=== PATIENT | male | born 1970 | race Caucasian/White ===

== ENCOUNTER 2021-03-13 00:54 | Inpatient (IN) | payer OTHER ==
[~2021-03-13] VITALS: Ht 172.7 cm; Wt 83.9 kg
--- NOTE | ~2021-03-13 | O ---
[facility] [place] [address] OPERATIVE REPORT Name: COLE GANN Room #: 444-P ADM IN M.R.#: [id number] Admission: 03/13/21 Attend Phys: Ranjana Maddox MD Discharge: Date of : 74 Report #: [id number] THIS REPORT FOR: cc: NO FAMILY PHYSICIAN or PCP NO FAMILY PHYSICIAN or PCP Vickey Ovalle MD ~ DATE OF SERVICE: 03/13/2021 SURGEON: Vickey Ovalle MD PREOPERATIVE DIAGNOSES: 1. Left parapharyngeal abscess. 2. Left tonsil mass. POSTOPERATIVE DIAGNOSES: 1. Left parapharyngeal abscess. 2. Left tonsil mass. PROCEDURES: 1. Bilateral Quinsy tonsillectomy. 2. Incision and drainage, left parapharyngeal abscess. INDICATIONS: The patient is a 51-year-old male presenting to the Emergency Department last night on transfer from [facility] after presenting with a 48-hour history of escalating sore throat. He was found to have a 3.5 cm abscess in the left peritonsillar and parapharyngeal space and they had recommended transfer. The patient had just eaten prior to his ER visit and so this was deferred to this morning for drainage. I have told him because he is 51 years old and a tobacco user that this is concerning for presentation of tonsil cancer and will need Quinsy tonsillectomy for biopsy as well as incision and drainage. DESCRIPTION OF PROCEDURE: The patient was brought to the operating room and placed supine on the operating table. After adequate general anesthesia was achieved via endotracheal intubation, he was turned 90 degrees. Shoulder roll was placed and neck was extended. He was prepped and draped for tonsillectomy. McIvor mouth gag was introduced, tongue was retracted and the patient suspended from the Bettencourt stand. Soft palate was palpated. There was no submucous cleft. It was retracted with a soft catheter. There was no nasopharyngeal mass. Right tonsil was grasped, moved to midline and incised with Bovie cautery. Left tonsil was then grasped. There was a bulging abscess in the superior pole. Incision was made into the anterior tonsillar pillar with an efflux of about 2-3 mL of esteban purulence. This was cultured for aerobe and fungus as a left parapharyngeal abscess. This parapharyngeal was extended more towards the retropharyngeal area than it did laterally towards the neck. There seemed to be a mass effect of the tonsil superiorly whether this was inflammatory or [address] [address] OPERATIVE REPORT Name: COLE GANN Room #: 444-P [facility] IN M.R.#: [id number] Admission: 03/13/21 Attend Phys: Ranjana Maddox MD Discharge: Date of : 74 Report #: [id number] neoplastic was uncertain. Incision was carried down to the muscle of the superior constrictor and then this entire tonsil was removed down to normal-appearing muscle on the left. Hemostasis was assured with suction cautery on both sides. Nose, nasopharynx, oral cavity were then irrigated. Once hemostasis was assured, he was returned to anesthesia, awake without difficulty, returned to recovery in good condition. Sponge and needle counts were correct. There were no complications. Blood loss was about 30 mL. POSTOPERATIVE PLAN: He will be watched until awake and stable. Presuming he does well, he may be discharged to home with plans to follow up with me in 2 weeks. Written and verbal discharge instructions and emergency precautions have been given to his . DISCHARGE MEDICATIONS: Include clindamycin 300 mg t.i.d. for 10 days, Percocet 7.5/325 one to two every 4-6 hours p.r.n., ondansetron ODT tablet 4 mg 1 p.o. every 4-6 hours p.r.n. He is instructed on light activity and a soft diet. The patient understands that if biopsies do show malignancy, further therapy will be necessary. By: [id number] Vickey Ovalle MD /nt
--- NOTE | ~2021-03-13 | HC ---
[facility] [place] [address] CONSULTATION Name: COLE GANN Room #: 150-3 ADM IN M.R.#: [id number] Admission: 03/13/21 Attend Phys: Ranjana Maddox MD Discharge: Date of : 74 Report #: [id number] THIS REPORT FOR: cc: NO FAMILY PHYSICIAN or PCP NO FAMILY PHYSICIAN or PCP Vickey Ovalle MD ~ SURGEON: Dr. Vickey Ovalle. REASON FOR CONSULTATION: Left peritonsillar abscess. HISTORY OF PRESENT ILLNESS: The patient is a 51-year-old male admitted via the Emergency Department at [facility] after transfer from [facility] for a diagnosis of peritonsillar abscess. The patient was transferred via private vehicle. He complained of sore throat, having its onset last Saturday morning, 48 hours ago, seemed to get better through the afternoon, but then worsened again at the night. This was associated with dysphagia and some dysarthria. [facility] had performed a CT and he was found to have 3.5 x 3.1 cm peritonsillar abscess as well as leukocytosis with a white count of 30,000. The patient was treated with 10 mg of IV Decadron and 600 mg of clindamycin IV as well as fluids and then transferred. The patient is at risk with an everyday smoker and does smoke marijuana daily. He denies alcohol use. The patient had just eaten prior to transfer last night. This could not be drained in the middle of the night. The patient was made n.p.o. and provided with IV hydration, admitted to the hospital and scheduled for an incision and drainage this morning. I did discuss with he and his options of incision and drainage alone versus incision and drainage with Quinsy tonsillectomy. Of concern, the patient is an everyday smoker and unusual without a history of chronic tonsillitis for this to develop, concern is always for an occult tonsil cancer, presenting as a peritonsillar abscess. I have recommended a Quinsy tonsillectomy for biopsy. PAST MEDICAL HISTORY: Negative for any significant chronic medical problems. He has no significant surgical history. MEDICATIONS: Prior to admission were none. ALLERGIES: None. SOCIAL HISTORY: He is a current everyday smoker of at least 1/2-1 pack a day, [place] [address] CONSULTATION Name: COLE GANN Room #: 150-3 [facility] IN ..#: [id number] Admission: 03/13/21 Attend Phys: Ranjana Maddox MD Discharge: Date of : 74 Report #: [id number] although he states he is trying to quit. He does smoke marijuana. He denies alcohol use. He is here today with his who is present to give history. REVIEW OF SYSTEMS: The patient is complaining of sore throat and dysphagia as well as general malaise. Otherwise, a 12-point review of systems is negative. PHYSICAL EXAMINATION: GENERAL: Shows a well-developed 51-year-old male seen in the preoperative area. VITAL SIGNS: Show a temperature of 97.1, pulse of 86, respiration of 19, 137/84, 98% on room air. HEENT: He is normocephalic. Pupils equal, round, reactive to light. Otologic exam is clear. Nasal exam; deviated septum to the right. Oral cavity shows an obvious abscess on the left with bulging of the anterior tonsillar pillar. The airway is adequate. Tongue is normal. NECK: Shows level 2 bilateral jugulodigastric adenopathy, slightly worse on the left. Trachea is midline. No other neck masses. NEUROLOGIC: Cranial nerves II-XII are intact. Motor, sensory and cerebellar exams are normal. LABORATORY WORK: Done on admission shows a white count of 22,300. This is down from 30,000 at [place]. Hemoglobin of 14.1, normal platelets. This is a left shift. Coronavirus was negative. Lactic acid 4.9. Metabolic evaluation shows a low salt, sodium of 135, glucose of 214 with IV fluids. The patient's SGOT was 11. I have reviewed notes from [facility] and read through all of these. ASSESSMENT: 1. Left peritonsillar abscess 3.5 x 3.1 cm with subsequent asymmetry of the left lateral oropharynx in a patient without a significant history of chronic tonsillitis. 2. Tobacco abuse, everyday smoker of tobacco 1/2 pack to 1 pack a day with marijuana. At a 51-year-old presentation with peritonsillar abscess. There is always a concern for tonsil malignancy. 3. Stable airway. PLAN: I have recommended proceeding with an incision and drainage of left peritonsillar abscess with Quinsy tonsillectomy for diagnosis and to rule out malignancy. I have discussed the planned procedure, indications, alternatives, benefits, and potential risks with the patient and his . I have made it clear to them that the peak time for bleeding is not immediate, but rather 5-10 days from today as this heals and as they are from an [facility] ____ with [facility] [address] [place] [address] CONSULTATION Name: COLE GANN Room #: 150-3 ADM IN M.R.#: [id number] Admission: 03/13/21 Attend Phys: Ranjana Maddox MD Discharge: Date of : 74 Report #: [id number] otolaryngic evaluation, this becomes more risky. They understand and desire to proceed. They agree with proceeding with Quinsy tonsillectomy per my concerns. By: [id number] Vickey Ovalle MD /nt
[2021-03-13 01:07] VITALS: BP 133/80
[2021-03-13 01:32] LABS: HEMOGLOBIN 14.1 gm/dL (14.0-18.0); MCH 29.8 pg (26.0-34.0); MCHC 33.6 g/dL (28.0-37.0); MCV 88.8 fL (80.0-100.0); PLATELET COUNT 281 thou/uL (150-400); RBC 4.73 mil/uL (4.50-6.00); RDW 14.2 % (10.5-14.5); WBC 22.3 thou/uL (4.0-11.0)
[2021-03-13 02:06] LABS: CALCIUM 8.7 mg/dL (8.5-10.1); CREATININE 1.4 mg/dL (0.7-1.3); POTASSIUM 4.1 mmol/L (3.5-5.1)
[2021-03-13 02:23] LABS: ALBUMIN 3.1 g/dL (3.4-5.0); TOTAL BILIRUBIN 0.4 mg/dL (0.2-1.0); TOTAL PROTEIN 7.1 g/dL (6.4-8.2)
[2021-03-13 02:52] LABS: ABSOLUTE NEUTROPHILS 21.4 thou/uL (1.4-8.2); METAMYELOCYTES 1 %
[2021-03-13 10:16] VITALS: BP 137/84
[2021-03-13] MEDS ORDERED: PERCOCET 5-3251 EACH PO ×2 (12:00→18:24)
[2021-03-13] MEDS ORDERED: CLEOCIN HCL150 MG PO (12:00)
[2021-03-13] MEDS ORDERED: ZOFRAN ODT4 MG DISSOLVE (12:00)
[2021-03-13 13:05] VITALS: BP 135/90
[2021-03-13 18:31] VITALS: BP 135/90
--- NOTE | 2021-03-13 19:30 | NUR ---
RN WENT OVER ALL DISCHARGE TEACHING AND EDUCATION, ALL QUESTIONS ANSWERED, IV OUT, AND WHEELED OUT IN WHEELCHAIR TO HOME. RN PAGED PHYSICIAN MULTIPLE TIMES TO GET A DISCHARGE SUMMARY DONE. RN HAD A VERBAL ORDER FOR DISCHARGE TO HOME. PATIENT RECIEVED PSCRIPTS AND ALL PAPERWORK.
[2021-03-14 02:06] LABS: GLYCOHEMOGLOBIN (HGB A1C) 5.8 % (4.8-5.6)
--- NOTE | 2021-03-16 11:08 | PATH ---
[facility] [place] [address] PATHOLOGY RPT PROCEDURE Name: URIEL YORK Room #: 444-P DIS IN M.R.#: [id number] Admission: 03/13/21 Date of : 74 Discharge: 03/13/21 Report #: [id number] Path Case #: [id number] [facility] Accession Number: [id number] . 01 Material submitted: . PART A: tonsil - RIGHT TONSIL. Modifiers: right PART B: tonsil - LEFT TONSIL. Modifiers: left . 01 Clinical history: . TONSILLECTOMY LEFT PERITONSILLAR ABSCESS . 02 Diagnosis: A. Tonsil, right tonsil, tonsillectomy: - Acutely inflamed epithelium overlying lymphoid tissue with reactive hyperplasia. - Actinomyces species identified within crypt. - Negative for epithelial dysplasia or carcinoma (entire tissue submitted for microscopic examination). . B. Tonsil, left tonsil, tonsillectomy: - Peritonsillar abscess associated with acute and chronic inflammation involving adjacent skeletal muscle tissue. - Acutely inflamed squamous epithelium overlying lymphoid tissue with reactive hyperplasia. - Negative for epithelial dysplasia or carcinoma (entire tissue submitted for microscopic examination). (IUV/db; 03/14/2021) LBQ 03/16/2021 0953 Local . 02 Comment: The case is shared with Dr. Isatu Patterson (board certified hematopathologist) for additional review. An addendum will be issued subsequent to the same. . . . . 02 Electronically signed: . Paty Romero MD, Pathologist NPI- [id number] . 01 Gross description: . A. The specimen is received in formalin, labeled "Uriel York, right tonsil" and consists of an intact tonsil (3.2 x 1.9 x 1.5 cm) which is surfaced with pink-huizar and smooth mucosa and a focally cauterized resection margin (inked black). Sectioning [place] [address] PATHOLOGY RPT PROCEDURE Name: URIEL YORK Room #: 444-P DIS IN M.R.#: [id number] Admission: 03/13/21 Date of : 74 Discharge: 03/13/21 Report #: [id number] Path Case #: [id number] homogenous cut surfaces. [employer] sections are submitted in A1. The remainder of the specimen is submitted in A2-A6. ([place]; 03/14/2021) . B. The specimen is received in formalin, labeled "Uriel York, left tonsil" and consists of an intact tonsil (3.3 x 2.5 x 2.0 cm) which is surfaced with pink-huizar and smooth mucosa and a focally cauterized resection margin (inked orange). Sectioning reveals pink-huizar and homogenous cut surfaces. A service support representative section is submitted in B1. ([place]; 03/13/2021) The remainder of the specimen is submitted in B2-B9.([place]; 03/14/2021) DKA/DKA 03/15/2021 1211 Local . 02 Pathologist provided ICD-10: J35.1, J35.01 . 02 CPT . 061232, 986914 Specimen Comment: A courtesy copy of this report has been sent to [phone], [phone] Specimen Comment: [phone] Specimen Comment: Report sent to / DR MILLAN Performed at: [address], [place] [id number] MD Andrew Olmstead MD Phone: [phone] Performed at: [address] [id number] MD Paty Romero MD Phone: [phone]
== END 2021-03-13 19:42 | disposition home or self-care (01) | DRG 145 ==
LOC: ER 00:54 → EROBS 01:56 → TBA 10:16 → 4S 13:13
PROVIDERS: Nurse Practitioner Family; Student in an Organized Health Care Education/Training Program; ADMIT Internal Medicine; ATTEND Internal Medicine
DX: J39.0 Retropharyngeal and parapharyngeal abscess (principal); J35.9 Chronic disease of tonsils and adenoids, unspecified; F17.210 Nicotine dependence, cigarettes, uncomplicated; Z20.822 Contact with and (suspected) exposure to COVID-19; F12.90 Cannabis use, unspecified, uncomplicated; Z83.3 Family history of diabetes mellitus; Z81.8 Family history of other mental and behavioral disorders; Z71.6 Tobacco abuse counseling; Z79.899 Other long term (current) drug therapy
CPT/HCPCS: 10102; 50010; 50101; 51609; 62110; 62900; 70005